=== PATIENT | female | born 1980 | race Caucasian/White ===

== ENCOUNTER 2018-02-02 16:34 | Emergency (ER) | payer OTHER ==
[2018-02-02 16:48] VITALS: BP 122/76; PULSE 83; RESP 18; TEMP 98.2
--- NOTE | 2018-02-02 17:15 | ED ---
General Adult HPI - General Chief complaint: Extremity Injury, Lower Stated complaint: Fall Time Seen by Provider: 02/02/18 16:57 Source: patient, RN notes reviewed Mode of arrival: ambulatory Limitations: no limitations - History of Present Illness Initial comments: Patient 37-year-old female presented to the emergency room today with a chief complaint of an injury to the right knee. She does admit that she slipped on some soybeans causing her fall landing on the right knee. She also admits she hit her head on a wagon. She states she did not lose conscious. She states that her head is doing okay but her reason for coming to emergency room as her knee. She states that when she tries to ambulate with certain movement she's feeling pain. Patient denies any other complaints or symptoms. Patient denies any recent fever, chills, shortness of breath, chest pain, back pain, abdominal pain, nausea or vomiting, numbness or tingling, headaches or visual changes, or any other complaints. - Related Data Home Medications Medication Instructions Recorded Confirmed No Known Home Medications 02/02/18 02/02/18 Allergies Allergy/AdvReac Type Severity Reaction Status Date / Time acetaminophen [From Vicodin] AdvReac Nausea Verified 02/02/18 16:52 hydrocodone bitartrate AdvReac Nausea Verified 02/02/18 16:52 [From Vicodin] Review of Systems ROS Statement: Those systems with pertinent positive or pertinent negative responses have been documented in the HPI. ROS Other: All systems not noted in ROS Statement are negative. Past Medical History Past Medical History: No Reported History History of Any Multi-Drug Resistant Organisms: None Reported Past Surgical History: Section, Cholecystectomy Past Psychological History: No Psychological Hx Reported Smoking Status: Never smoker Past Alcohol Use History: Rare Past Drug Use History: None Reported General Exam - General Exam Comments Initial Comments: General: The patient is awake and alert, in no distress, and does not appear acutely ill. Neck: The neck is supple, there is no tenderness or JVD. Musculoskeletal: Patient does have superficial abrasion over the anterior aspect of the right knee. Patient tender over the anterior aspect on palpation. Sensations intact. Pedal pulse 2+. No tenderness to the right ankle area Neurological: A&O x 3. CN II-XII intact, There are no obvious motor or sensory deficits. Coordination appears grossly intact. Speech is normal. Skin: Skin is warm and dry and no rashes or lesions are noted. Psychiatric: Normal mood and affect. Limitations: no limitations Course Vital Signs 02/02/18 16:46 Temperature 98.2 F Pulse Rate 83 Respiratory 18 Rate Blood Pressure 122/76 O2 Sat by Pulse 99 Oximetry Medical Decision Making - Medical Decision Making Patient's x-ray negative for any acute abnormality. Patient advised to continue to ice elevate the affected area use ibuprofen for pain. Advised follow-up with orthopedics 7-10 days for repeat x-rays if symptoms persist. Disposition Clinical Impression: Knee contusion, Knee abrasion Disposition: HOME SELF-CARE Condition: Good Instructions: Knee Pain (ED) Additional Instructions: Please continue to ice elevate the affected area 4 times a day for 20 minutes at a time. Please use ibuprofen for pain. Please follow-up with the orthopedic doctor in 7-10 days if symptoms persist for further evaluation. Is patient prescribed a controlled substance at d/c from ED?: No Referrals: Paula Talley MD [Primary Care Provider] - 1-2 days Sharona Coello DO [Doctor of Osteopathic Medicine] - 1-2 days Time of Disposition: 17:44
--- NOTE | 2018-02-02 17:34 | XR ---
PROCEDURE: XR knee 4V RT DATE AND TIME: 02/02/2018 5:28 PM REFERRING PHYSICIAN: Jose Manuel Wilson CLINICAL INDICATION: PHH, Pain TECHNIQUE: Department protocol. COMPARISON: None FINDINGS: There is no fracture or malalignment. The soft tissues are unremarkable. IMPRESSION: NO ACUTE PROCESS.
== END 2018-02-02 18:12 | disposition home or self-care (01) ==
LOC: EC 16:34
DX: S80.01XA Contusion of right knee, initial encounter (principal); Z88.5 Allergy status to narcotic agent; W01.10XA Fall on same level from slipping, tripping and stumbling with subsequent striking against unspecified object, initial encounter
CPT/HCPCS: 99283